=== PATIENT | male | born 1980 | race Caucasian/White ===

== ENCOUNTER 2025-04-30 00:29 | Emergency (ER) | payer SELFPAY ==
[2025-04-30 01:00] VITALS: BP 114/72
[2025-04-30 01:19] LABS: Hematocrit 39.0 % (39.0-52.0); Hemoglobin 13.3 g/dL (13.0-18.0); Mean Corp Hgb Conc. 34.1 g/dL (33.0-37.0); Mean Corpuscular Volume 90.3 fL (80.0-94.0); Nucleated Red Blood Cells % 0 % (-); Platelet Count 255 10^3/uL (130-400); Red Cell Dist. Width 13.1 % (11.5-14.5)
[2025-04-30 01:42] LABS: ALT (SGPT) 24 U/L (0-50); AST (SGOT) 25 U/L (17-59); Albumin 4.5 g/dl (3.5-5.0); Alkaline Phosphatase 72 U/L (38-126); Blood Urea Nitrogen 24 mg/dl (9-20); Calcium 9.4 mg/dl (8.4-10.2); Carbon Dioxide 31 mmol/L (22-30); Chloride 106 mmol/L (98-107); Glucose 126 mg/dl (70-99); Potassium 4.8 mmol/L (3.5-5.1); Sodium 142 mmol/L (135-145); Total Protein 6.9 g/dl (6.3-8.2); eGFR > 60.00
[2025-04-30 01:54] LABS: Troponin I < 0.012 ng/ml
[2025-04-30 03:23] VITALS: BP 120/79
[2025-04-30 04:09] VITALS: BP 112/74
[2025-04-30 05:00] VITALS: BP 100/61
[2025-04-30 06:00] VITALS: BP 95/66
[2025-04-30 07:00] VITALS: BP 96/63
--- NOTE | 2025-04-30 07:05 | ED.GENMED ---
History of Present Illness
General
Chief Complaint: Numbness
Source: patient
Exam Limitations: none
Time Seen by Provider: 04/30/25 06:45
Nursing documentation reviewed up to this point in time: agreed with
History of Present Illness
History of Present Illness:
The patient is a pleasant 45-year-old man who reports that he was extremely tired yesterday and fell asleep on his left side, with his left arm ' bent in a funny position'. Patient reports that he was so tired he has a remember falling asleep.
Patient reports that when he woke up at 10 PM he felt tingling and numbness down his left arm from his upper arm down to his fingertips. Patient denies any numbness in the face or leg. Patient reports that after 2 hours of symptoms he got nervous
and came to the ED. Patient reports at this time the symptoms are nearly gone. He denies any history of stroke. Patient reports mild intermittent chest pain that comes and goes over the last several days. He denies shortness of breath. He
denies leg pain and leg swelling. He denies history of PE and DVT.
Past History
Past History
ED Past Medical History: Other
ED Past Surgical History: Tonsilectomy
Social History
Tobacco: Former smoker
Alcohol: Occasional
Drug: Marijuana
Personal: Single
Living: with roommate
Employment: Other
Family History
Family History: Other
Review of Systems
Review of Systems
Allergies reviewed?: Yes
All Other Systems: ROS reviewed and negative except as documented in HPI and ROS
Constitutional: Reports no symptoms
EENT: Reports no symptoms
Respiratory: Reports no symptoms
Cardiac: Reports chest pain
ABD/GI: Reports no symptoms
: Reports no symptoms
Musculoskeletal: Reports no symptoms
Skin: Reports no symptoms
Neurological: Reports numbness; Denies weakness
Endocrine: Reports no symptoms
Hematologic/Lymphatic: Reports no symptoms
Psychiatric: Reports no symptoms
Phy Exam
Physical Exam
Physical Exam:
General; well and comfortable appearing
HEENT: Extraocular muscles intact, PERRL
Neck: Supple
Cardiovascular: Regular rate and rhythm
Lungs: Clear, no respiratory distress
Abdomen; soft
Neurological: 5 out of 5 strength in all extremities without drift. Steady gait. Equal sensation in face arms and legs. Speech sounds completely normal
Psychiatric: Calm, cooperative
Extremities; strong pulses in bilateral upper and lower extremities. No swelling or deformity of legs and arms
Course
Orders/Labs/Results
Orders:
Orders
04/30/25 01:04
Electrocardiogram (*1) Urgent
Reason for Study: Chest Pain
EKG- Treatment ONCE
04/30/25 01:10
Complete Blood Count/With Diff Urgent
Comprehensive Metabolic Panel Urgent
Troponin I Urgent
04/30/25 03:52
CR Chest - 2 Views Urgent
Comment:
Reason For Exam: SOB
Abnormal Lab Results
04/30/25
01:10
RBC 4.32 L 10^6/uL
(4.70-6.10)
Absolute Monos (auto) 0.7 H 10^3/uL
(0.1-0.6)
Monocytes % 11.6 H %
(1.7-9.3)
Carbon Dioxide 31 H mmol/L
(22-30)
BUN 24 H mg/dl
(9-20)
Glucose 126 H mg/dl
(70-99)
04/30/25 01:10
04/30/25 01:10
Vital Signs
Initial and Last Documented VS:
Initial Vital Signs
Temp Pulse Resp BP Pulse Ox
98.4 F 84 16 114/72 99
04/30/25 01:00 04/30/25 01:00 04/30/25 01:00 04/30/25 01:00 04/30/25 01:00
Last Documented Vital Signs
Temp Pulse Resp BP Pulse Ox
98.4 F 60 15 96/63 97
04/30/25 01:00 04/30/25 07:00 04/30/25 07:00 04/30/25 07:00 04/30/25 07:07
MDM/Problems Addressed
Differential Diagnosis Includes:
Radial nerve palsy, electrolyte abnormality, stroke
MDM/Problems Addressed:
Patient presents with isolated acute left arm numbness that is now back to normal
*Pulse Oximetry
SaO2: 97
Oxygen Mode of Delivery: Room air
Patient hypoxic: no
Comment: Patient is 97% on room air
*EKG
Interpreted by ED Provider?: Yes
Interpretation: normal
Comparison EKG: no comparison EKG present
Rate: normal
Rhythm: sinus
Brandon: normal axis
Interval: normal interval
QRS Pattern: normal QRS
Ischemia: no ischemia
*House Wrecker Interpretation
Rate: normal
Interpretation: normal
Rhythm: sinus
*Critical Care Note
Total Time (30-74mins, 75-104mins- exclusive of procedures): Not Applicable
Data Reviewed
Source: patient
Patient Management
Social determinants of health affecting care: Living situation and Strong social support
Escalation/DeEscalation of care consider admission/obs:
Patient states that his left arm numbness is nearly gone. He has a normal neurological exam. Story is very suspicious for nerve palsy. Very unlikely to be stroke
Patient told to return with any recurrence of numbness of left arm or any numbness of face or leg of any kind.
ED Attending Note
-
Portions of this chart may have been created with voice recognition software.� Occasional wrong word or��sound alike� substitutions may have occurred due to the inherent limitations of voice recognition software.
Discharge Plan
Departure
Patient Disposition: Home (Routine Discharge)
Date of Disposition: 04/30/25
Time of Disposition: 07:17
Patient with high blood pressure during this ER visit?: No
Condition: Good
Discharge Problem:
Nerve palsy
Instructions: Paresthesia (DC)
Prescriptions:
No Action
No Current Medications
0
Referrals:
UNKNOWN,NO INTERVIEW [Family Provider]
Activity Restrictions/Additional Instructions:
Return if you experience any worsening numbness in the left arm or any numbness at all of the face or leg. Your symptoms are likely due to laying on your left arm and compressing the nerve.
Interventions
Interventions:
*Risk Screen - Suicide Last Done: 04/30/25 01:00
*General Assessment Last Done: 04/30/25 01:00
*Neglect/Abuse Screening Last Done: 04/30/25 01:00
*ED COVID-19 Vaccine History Last Done: 04/30/25 03:43
ED- Neurological Assessment Last Done: 04/30/25 03:55
Discharge Date and Time
Print Language: GREENLAND[place]
== END 2025-04-30 07:53 | disposition home or self-care (01) ==
LOC: EMR 00:29
PROVIDERS: Student in an Organized Health Care Education/Training Program; EMERGENCY PHYSICIAN Emergency Medicine
DX: G58.9 Mononeuropathy, unspecified (principal); Z87.891 Personal history of nicotine dependence
CPT/HCPCS: 99284; 71046; 80053; 84484; 85025; 93005